=== PATIENT | female | born 1955 | race Caucasian/White ===

== ENCOUNTER 2016-03-29 08:52 | Outpatient (RCR) | payer MEDICARE, MEDICAID ==
[~2016-03-29 08:52] MED LIST: ALBU8.5H2 IH; ARIP10TA16 PO; ARIP5TAB5 PO; ASP81CT PO; BUTA1CAP42 PO; CALC-79 PO; CYAN100015 SL; CYCL5TAB PO; DIAZ10TA3 PO; FAMO1TAB21 PO; L.AC1CAP6 PO; LEVO25TA5 PO; METR500T17 PO; NST15PW TOP; NYST30CR3 TOP; ONDA4TAB8 PO; OXYC1TAB12 PO; PEDI1TAB PO; PROM25TA14 PO; PROP80CA4 PO; RIZA10TA23 PO; SULF-221 PO; VILA40TA PO; ZOLP10TA PO; [UNRECOGNIZED DRUG - CODE] PO
== END 2016-06-27 | disposition home or self-care (01) ==
LOC: DT 08:52
PROVIDERS: ATTEND Family Medicine
DX: E66.01 Morbid (severe) obesity due to excess calories (principal); Z68.43 Body mass index [BMI] 50.0-59.9, adult; I10 Essential (primary) hypertension; E78.00 Pure hypercholesterolemia, unspecified; Z71.3 Dietary counseling and surveillance; Z98.84 Bariatric surgery status